=== PATIENT | female | born 1960 | race Caucasian/White ===

== ENCOUNTER 2017-05-04 06:58 | Day surgery (SDC) | payer BC ==
[~2017-05-04 06:58] MED LIST: CATAPRES0.1 MG PO; HYDROCHLOROTHIA25 MG PO; MICROZIDE12.5 MG PO; PRINIVIL10 MG PO
== END 2017-05-04 13:45 | disposition short-term general hospital (02) ==
LOC: SURGOP 06:58
PROC: 0FT44ZZ Resection of Gallbladder, Percutaneous Endoscopic Approach (ICD-10-PCS; principal; 2017-05-04)
DX: K80.10 Calculus of gallbladder with chronic cholecystitis without obstruction (principal); I10 Essential (primary) hypertension; K21.9 Gastro-esophageal reflux disease without esophagitis; E66.9 Obesity, unspecified; Z83.3 Family history of diabetes mellitus; Z91.048 Other nonmedicinal substance allergy status; Z79.891 Long term (current) use of opiate analgesic; Z79.899 Other long term (current) drug therapy
CPT/HCPCS: J0131; J0690; J1885; J2250; J2405; J3010